=== PATIENT | female | born 1965 | race Caucasian/White ===

== ENCOUNTER 2023-12-27 21:15 | Emergency (ER) | payer BC, SELFPAY ==
[2023-12-27 21:18] VITALS: BP 136/86
--- NOTE | 2023-12-27 21:58 | ED.GENMED ---
History of Present Illness
General
Chief Complaint: Musculo-Skeletal Complaint
Time Seen by Provider: 12/27/23 21:56
Travel History
Have you had any contact with someone who has COVID-19?: No
Do you have any symptoms of coronavirus? Fever > 100 degrees, chills, cough, shortness of breath, sore throat, loss of taste or smell, muscle aches, or headache?: No
History of Present Illness
History of Present Illness:
HPI: Patient presents after a fall. She was walking 2 dogs and they got startled by a deer. She was pulled to the ground. She struck the left side of her face. She has no headache. But she thought she heard a 'crack'. She does not have
sensation of loose teeth. states she is acting appropriately. She also primarily complains of pain at the right foot to the lateral aspect. She denies any other symptoms.
EXAM:
GENERAL: Well appearing in no distress
CERVICAL SPINE: No midline c-spine tenderness with excellent AROM
HEAD: No evidence of craniofacial trauma
HEENT: No evidence of intraoral trauma, dental fillings noted
CHEST: No chest wall tenderness, normal heart sounds
LUNGS: Equal lung sounds, no respiratory distress
ABDOMEN: No abdominal tenderness, no peritoneal signs
EXTREMITIES: There is a small hematoma overlying the base of the fifth metatarsal, there is tenderness over the base of the fifth metatarsal, remainder of extremities exam is unremarkable, there is very good active range of motion at the ankles and
proximal lower extremities
NEURO: Excellent strength all extremities, appropriate mental status, normal speech/language
TIME OF INITIAL ENCOUNTER: 10 PM
NUMBER AND COMPLEXITY OF PROBLEMS ADDRESSED AT THE ENCOUNTER
� Chronic conditions affecting care: Rheumatoid arthritis
� Acute Exacerbation and/or Progression of Chronic Illness: This is an acute problem
� Differential Diagnosis includes: Foot fracture, foot sprain, highly doubt intracranial hemorrhage based on examination and history
AMOUNT AND/OR COMPLEXITY OF DATA TO BE REVIEWED AND ANALYZED
� I performed an independent evaluation of and my interpretation is:
EKG:
CT:
X-rays: I personally reviewed x-ray images appear to be an acute abnormality at the base of the fifth metatarsal�suspect base of fifth metatarsal fracture
Laboratory Studies:
Other:
� Review of other/old records: [facility]
� Clinical information was obtained by an independent historian: I spoke to at bedside
� Prescriptions/Medications Considered but not given: Declines analgesia
� Further testing considered but not performed: Considered CT imaging of face and/or brain as the patient struck the left side of her face however she has no significant tenderness, there is no forehead hematoma, and her GCS is
15 with an NIH stroke scale of 0
RISK OF COMPLICATIONS AND/OR MORBIDITY OR MORTALITY OF PATIENT MANAGEMENT
� Social determinants of health affecting care: Lives at home
� Discussion with other providers:
� Escalation of care including admission/observation vs risk of discharge considered: The patient declines analgesia. Other than the foot injury, she denies any other concerns. She was placed in boot and given Ortho follow-up.
Phy Exam
Physical Exam
Physical Exam:
See HPI
Course
Orders/Labs/Results
Orders:
Orders
12/27/23 21:20
CR Facial Bones Comp Min 3 Vw* Urgent
Comment:
Reason For Exam: injury
CR Foot - Right Min 3 Views Urgent
Comment:
Reason For Exam: injury
12/27/23 22:07
boot [Ortho Boot Right- Treatment] ONCE
Short or tall?: Short
Vital Signs
Initial and Last Documented VS:
Initial Vital Signs
Temp Pulse Resp BP Pulse Ox
98.2 F 86 20 136/86 99
12/27/23 21:18 12/27/23 21:18 12/27/23 21:18 12/27/23 21:18 12/27/23 21:18
Last Documented Vital Signs
Temp Pulse Resp BP Pulse Ox
98.2 F 86 20 136/86 99
12/27/23 21:18 12/27/23 21:18 12/27/23 21:18 12/27/23 21:18 12/27/23 21:18
*Critical Care Note
Total Time (30-74mins, 75-104mins- exclusive of procedures): Not Applicable
ED Attending Note
-
Portions of this chart may have been created with voice recognition software.� Occasional wrong word or��sound alike� substitutions may have occurred due to the inherent limitations of voice recognition software.
Discharge Plan
Departure
Patient Disposition: Home (Routine Discharge)
Date of Disposition: 12/27/23
Time of Disposition: 22:05
Patient with high blood pressure during this ER visit?: Yes
Discharge Problem:
Fracture of base of fifth metatarsal bone
Instructions: Foot Fracture (DC)
Referrals:
Sánchez Jacobs, DO [Family Provider] -
Katherine Maki I., DO [Active] - Follow up in 2-3 days
Activity Restrictions/Additional Instructions:
Please follow-up your primary care doctor. I recommend 3-4 [id number] ibuprofen (Motrin) every 8 hours with food for a few days. Return here if worse. The radiologist also agrees that there is a fracture at the base of the fifth
metatarsal�we have placed you in a boot. I have given you the contact information for Dr. Maki on-call orthopedics. You could follow-up with her or any Ortho doctor that you would like.
Interventions
Interventions:
*Risk Screen - Suicide Last Done: 12/27/23 21:18
*General Assessment Last Done: 12/27/23 21:18
*Neglect/Abuse Screening Last Done: 12/27/23 21:18
Discharge Date and Time
Print Language: [place]
== END 2023-12-27 22:27 | disposition home or self-care (01) ==
LOC: EMR 21:15
PROVIDERS: EMERGENCY PHYSICIAN Emergency Medicine; FAMILY PHYSICIAN Family Medicine
DX: S92.351A Displaced fracture of fifth metatarsal bone, right foot, initial encounter for closed fracture (principal); S90.121A Contusion of right lesser toe(s) without damage to nail, initial encounter; W19.XXXA Unspecified fall, initial encounter; Y93.K1 Activity, walking an animal; M06.9 Rheumatoid arthritis, unspecified; R03.0 Elevated blood-pressure reading, without diagnosis of hypertension; R51.9 Headache, unspecified; Z88.2 Allergy status to sulfonamides
CPT/HCPCS: 99284; 29515; 70150; 73630